=== PATIENT | female | born 1995 | race Two or more races ===

== ENCOUNTER 2022-04-14 10:20 | Emergency (ER) | payer MEDICAID ==
[~2022-04-14] VITALS: Ht 154.9 cm; Wt 51.7 kg
[2022-04-14 10:33] VITALS: BP 121/88
--- NOTE | 2022-04-14 12:58 | NUR ---
Multiple Calls NO Response- Eloped
== END 2022-04-14 12:59 | disposition home or self-care (01) ==
LOC: ER 10:30
DX: Z53.21 Procedure and treatment not carried out due to patient leaving prior to being seen by health care provider (principal)